=== PATIENT | male | born 1960 | race Two or more races ===

== ENCOUNTER 2021-10-24 11:50 | Outpatient (CLI) | payer OTHER | END 2021-10-24 23:59 | disposition home or self-care (01) | LOC: LAB 11:50 | PROVIDERS: ATTEND Specialist | DX: Z01.812 Encounter for preprocedural laboratory examination (principal); Z20.822 Contact with and (suspected) exposure to COVID-19 | CPT/HCPCS: C9803; U0003 ==

== ENCOUNTER 2021-10-30 05:16 | Day surgery (SDC) | payer OTHER ==
[~2021-10-30] VITALS: Ht 177.8 cm; Wt 100.7 kg
[2021-10-30 05:30] VITALS: BP 130/76
[2021-10-30] MEDS ORDERED: CEFAZOLIN 1 GM in IV D5W 50 ML IV ONE (06:00)
--- NOTE | 2021-10-30 06:00 | NUR ---
MS RN NOTES AWAKE & RESPONSIVE. NOT IN ANY DISTRESS. NO SOB NOTED. DENIES ANY PAIN OR DISCOMFORT AT THIS TIME. INSERTED IV-HL G 20 @ L WRIST PATENT & INTACT. PT TOLERATED WELL. MONITORED ACCORDINGLY. CALL LIGHT WITHIN REACH. BED IN LOWEST POSITION. SR UP X 3 WITH BED ALARM ON FOR SAFETY. REPORT GIVEN TO DAY SURGERY RN FOR CONTINUITY OF CARE.
[2021-10-30] MEDS ORDERED: BUPIVACAINE 0.5 % PF 150 MG/30 ML VIAL ONE (06:32)
[2021-10-30] MEDS ORDERED: FENTANYL PF 100MCG/2ML AMPUL ONE (06:37)
[2021-10-30] MEDS ORDERED: AMLO-212 PO (06:45)
[2021-10-30] MEDS ORDERED: HYDROMORPHONE 1 MG/1 ML DISP.SYRIN ONE (07:52)
--- NOTE | 2021-10-30 07:52 | NUR ---
MS RN OPENING NOTES Pt IS CURRENTLY NOT ON FLOOR. OUT FOR DAY SURGERY, WILL MONITOR WHEN Pt COMES BACK FROM PROCEDURE.
[2021-10-30] MEDS ORDERED: hydrALAZINE HCL IV 20 MG VIAL IV PRN (08:00)
[2021-10-30] MEDS ORDERED: AMLODIPINE BESYLATE 5 MG TABLET PO SCH (09:00)
[2021-10-30 09:17] VITALS: BP 115/65
--- NOTE | 2021-10-30 10:00 | NUR ---
MS RN NOTES RECEIVED Pt AWAKE IN BED. A/Ox4. BREATHING ON ROOM AIR AND TOLERATING WELL. NO COMPLAINTS OF PAIN MADE. NO SIGNS OF DISTRESS. SAFETY MEASURES IN PLACE: BED IS LOCKED AND IN LOWEST POSITION. SIDE RAILS UPx3. CALL LIGHT AND BEDSIDE STABLE ARE WITHIN REACH. WILL CONTINUE TO MONITOR.
[2021-10-30 10:26] VITALS: BP 148/96
--- NOTE | 2021-10-30 11:14 | NUR ---
MS RN NOTES- DISCHARGE Pt HAS BEEN DISCHARGED. Pt IS A/Ox4. MEDICALLY STABLE. Pt ATE, DRANK WATER, AND WALKED PRIOR TO DISCHARGE. IV ACCESS ON L WRIST HAS BEEN REMOVED. Pt IS BREATHING EVEN AND UNLABORED ON ROOM AIR. ALL DISCHARGE INSTRUCTIONS HAVE BEEN EXPLAINED. Pt STATED VERBALLY THAT HE UNDERSTOOD. Pt IS LEAVING THE FLOOR VIA WHEELCHAIR AND IS LEAVING THE HOSPITAL WITH HIS VIA PRIVATE CAR.
== END 2021-10-30 18:00 | disposition home or self-care (01) ==
LOC: DS 05:16 → MED 05:18 → UNDOADMIN 05:18 → UNDODISIN 11:20 → DS 18:00
PROVIDERS: ATTEND Specialist
DX: S83.281A Other tear of lateral meniscus, current injury, right knee, initial encounter (principal); S83.241A Other tear of medial meniscus, current injury, right knee, initial encounter; X58.XXXA Exposure to other specified factors, initial encounter; Y93.89 Activity, other specified; Y92.89 Other specified places as the place of occurrence of the external cause; Y99.8 Other external cause status; Z20.822 Contact with and (suspected) exposure to COVID-19; I10 Essential (primary) hypertension; K21.9 Gastro-esophageal reflux disease without esophagitis; E66.01 Morbid (severe) obesity due to excess calories; Z98.890 Other specified postprocedural states; Z79.82 Long term (current) use of aspirin; Z79.899 Other long term (current) drug therapy
CPT/HCPCS: 29880; 97116; 97161; 97530; A4217; J0690; J1100; J1170; J1885; J2405; J2704; J3010; J3490 ×2; J7030; G0378; J7060